=== PATIENT | male | born 1980 | race Caucasian/White ===

== ENCOUNTER 2022-11-18 13:30 | Emergency (ER) | payer SELFPAY ==
[~2022-11-18] VITALS: Ht 172.7 cm; Wt 86.2 kg
[2022-11-18 13:31] VITALS: BP 143/75
[2022-11-18] MEDS ORDERED: KETOROLAC 30 MG/ML VIAL IM ONE (14:15)
[2022-11-18] MEDS ORDERED: LID5T TP (14:31)
[2022-11-18] MEDS ORDERED: NAPR-54 PO (14:31)
[2022-11-18] MEDS ORDERED: CYCL-711 PO (14:31)
--- NOTE | 2022-11-18 14:43 | NUR ---
Patient discharged with v/s stable. Written and verbal after care instructions given and explained. Patient alert, oriented and verbalized understanding of instructions. Ambulatory with steady gait. All questions addressed prior to discharge. ID band removed. Patient advised to follow up with PMD. Rx of flexeril, naprosyn given. Patient educated on indication of medication including possible reaction and side effects. Opportunity to ask questions provided and answered.
== END 2022-11-18 14:43 | disposition home or self-care (01) ==
LOC: MED 13:30
DX: S39.012A Strain of muscle, fascia and tendon of lower back, initial encounter (principal); Z79.899 Other long term (current) drug therapy; X58.XXXA Exposure to other specified factors, initial encounter; Y93.89 Activity, other specified; Y92.89 Other specified places as the place of occurrence of the external cause; Y99.8 Other external cause status
CPT/HCPCS: 96372; 99283; J1885